=== PATIENT | male | born 1985 | race Caucasian/White ===

== ENCOUNTER 2017-08-18 20:24 | Emergency (ER) | payer OTHER ==
[2017-08-18 20:29] VITALS: BP 131/75; PULSE 82; RESP 16; TEMP 98.4; O2SAT 97
--- NOTE | 2017-08-18 20:34 | EDPHY ---
H & P Stated Complaint: fall while snowboarding, R shoulder pain Time Seen by Provider: 08/18/17 20:34 - Personal History Current Tetanus/Diphtheria Vaccine: Unsure - Medical/Surgical History Hx Asthma: No Hx Chronic Respiratory Disease: No Hx Diabetes: No Hx Cardiac Disease: No Hx Renal Disease: No Hx Cirrhosis: No Hx Alcoholism: No Hx HIV/AIDS: No Hx Splenectomy or Spleen Trauma: No Other PMH: head injury - Social History Smoking Status: Never smoked Constitutional: Initial Vital Signs Temperature (C) 36.9 C 08/18/17 20:27 Heart Rate 82 08/18/17 20:27 Respiratory Rate 16 08/18/17 20:27 Blood Pressure 131/75 H 08/18/17 20:27 O2 Sat (%) 97 08/18/17 20:27 O2 Delivery Mode Room Air Allergies/Adverse Reactions: No Known Allergies Allergy (Verified 08/18/17 20:29) Home Medications: Medication Instructions Recorded NK [No Known Home Meds] 08/18/17 Medical Decision Making - Diagnostics Imaging: Discussed imaging studies w/ call center representative Radiologist, I viewed and interpreted images myself ED Course/Re-evaluation: CHIEF COMPLAINT: Right shoulder pain HISTORY OF PRESENT ILLNESS: The patient is a 32 y/o male complaining of right shoulder pain secondary to a fall while snowboarding today. He caught an edge and fell sideways directly onto his right shoulder. He felt a "crunch" and had immediate shoulder pain. He denies head strike, loss of consciousness, or other injuries from the fall. He was able to [place]board [place] the [place] after the fall, but has continued to have pain in his right shoulder. He has had difficulty extending or raising his arm due to pain. No weakness or paresthesias. Normally healthy. REVIEW OF SYSTEMS: A 10 point review of systems was performed and is negative with the exception of the elements mentioned in the history of present illness. PHYSICAL EXAM: HR, BP, O2 Sat, RR. Temp noted General Appearance: Alert, well hydrated, appropriate, and non-toxic appearing. Head: Atraumatic without scalp tenderness or obvious injury Eyes: Pupils equal, round, reactive to light and accommodation, EOMI, no trauma , no injection. Nose: Atraumatic, no rhinorrhea, clear. Throat: Mucus membranes moist. Neck: Supple, nontender, no lymphadenopathy. Respiratory: No retractions, no distress, no wheezes, and no accessory muscle use. Lungs are clear to auscultation bilaterally. Cardiovascular: Regular rate and rhythm, no murmurs, rubs, or gallops. Right radial pulse intact. Good capillary refill all extremities. Gastrointestinal: Abdomen is soft, nontender, non-distended, no masses, no rebound, no guarding, no peritoneal signs. Musculoskeletal: Tenderness and crepitus over midshaft right clavicle and pain with any ROM of right shoulder, otherwise normal active ROM of all extremities, atraumatic. Neurological: Alert, appropriate, and interactive. The patient has non-focal cranial nerves, motor, sensory, and cerebellar exam. Skin: No rashes, good turgor, no nodules on palpation. Past medical history: Ortho injuries Past surgical history: Denies Family history: Noncontributory Social history: Lives in [place]. [employer] student. DIAGNOSTICS/PROCEDURES/CRITICAL CARE TIME: Right shoulder x-ray: midshaft displaced clavicle fracture, no pneumothorax, possibly small chip on lower lateral aspect of scapula DIFFERENTIAL DIAGNOSIS: The differential diagnosis for the patient's injury included but was not limited to fracture, ligamentous injury, contusion, muscular strain. MEDICAL DECISION MAKING: This is a healthy 32 y/o male who presents with acute right shoulder pain secondary to a low-speed fall while snowboarding. He has tenderness and crepitus over his right clavicle and pain with ROM of shoulder. He is neurovascularly intact with an otherwise atraumatic exam. X-ray confirms midshaft clavicle fracture. Patient will be placed in sling and discharged with standard fracture care and follow up instructions. He declined narcotic pain medication prescription. Return precautions discussed. He is comfortable with this plan. Departure - Departure Disposition: Home, Routine, Self-Care Clinical Impression: Right clavicle fracture Qualifiers: Encounter type: initial encounter Clavicle location: shaft Fracture type: closed Fracture alignment: displaced Qualified Code(s): S42.021A - Displaced fracture of shaft of right clavicle, initial encounter for closed fracture Condition: Good Instructions: Clavicle Fracture (ED) Additional Instructions: 1. Wear sling until follow up with orthopedist. 2. Use Tylenol and ibuprofen as directed for pain and inflammation over the next several days. 3. Apply ice to sore areas intermittently over the next 24-48 hours. 4. Follow up with Dr. Mir, orthopedic surgeon, in the next week. I recommend calling tomorrow morning to schedule this appointment. 5. Return to the ED for severe pain, weakness or numbness in your hand, or any other worsening of condition. Adult Pain & Fever Control: We recommend Acetaminophen (Tylenol) and Ibuprofen (Motrin,Advil) for pain and fever control. When fever is high or pain severe, both drugs can be used at the same time, but at different intervals. Please note the time differences. Your dose is: Acetaminophen 650mg every 4 to 6 hours Ibuprofen 600mg every 6-8 hours with food Note: do not take Acetaminophen with Hydrocodone (Vicodin, Lortab) or Oxycodone (Percocet). These medications also contain Acetaminophen. No more than 3000mg of Acetaminophen should be taken in 24 hours (for an adult). Referrals: Ajay Mir MD [Medical Doctor] - As per Instructions Report Scribed for: Neri Johnson Report Scribed by: Niru Pinto Date of Report: 08/18/17 Time of Report: 21:05
== END 2017-08-18 21:14 | disposition home or self-care (01) ==
DX: S42.021A Displaced fracture of shaft of right clavicle, initial encounter for closed fracture (principal); V00.311A Fall from snowboard, initial encounter; Y99.8 Other external cause status; Y93.23 Activity, snow (alpine) (downhill) skiing, snowboarding, sledding, tobogganing and snow tubing